=== PATIENT | female | born 1990 ===

== ENCOUNTER 2021-09-21 20:16 | Observation (INO) ==
[2021-09-21] MEDS ORDERED: Boostrix 0.5 ML (Tdap) VIAL ONE (20:37)
[2021-09-21] MEDS ORDERED: Lidocaine 1% (PF) 30 ML VIAL ONE (20:37)
[2021-09-21] MEDS ORDERED: Fentanyl 100 MCG/2 ML VIAL ONE ×3 (20:54→23:30)
[2021-09-21] MEDS ORDERED: Bacitracin Zinc Ointment 30 gm TUBE ONE (21:07)
[2021-09-21] MEDS ORDERED: Neomycin-Polymyxin 1 ML AMP ONE (21:07)
[2021-09-21] MEDS ORDERED: Bupivacaine PF 0.5% 30 ML VIAL ONE (21:07)
[2021-09-21] MEDS ORDERED: Acetaminophen 325 MG TAB PO PRN (21:14)
[2021-09-21] MEDS ORDERED: Fentanyl 100 MCG/2 ML VIAL SLOW IVP PRN (21:14)
[2021-09-21] MEDS ORDERED: Communication Order-Pharmacy FS SCH (21:15)
[2021-09-21] MEDS ORDERED: TETANUS AND DIPHTHERIA TOX/PF 0.5 ML DISP.SYRIN IM SCH (21:15)
[2021-09-21] MEDS ORDERED: Ketorolac Tromethamine 30 MG/ML VIAL IVP PRN (21:21)
[2021-09-21] MEDS ORDERED: Meperidine HCl/PF 25 MG/ML VIAL IM PRN (21:21)
[2021-09-21] MEDS ORDERED: Lidocaine 1% PF 5 ML VIAL ONE (21:41)
[2021-09-21] MEDS ORDERED: Succinylcholine 200 MG/10 ml SYRINGE FS ONE (21:41)
[2021-09-21] MEDS ORDERED: Rocuronium Bromide 10 MG/ML (10ML VIAL) ONE (21:41)
[2021-09-21] MEDS ORDERED: Ketorolac Tromethamine 30 MG/ML VIAL ONE (21:41)
[2021-09-21] MEDS ORDERED: PROPOFOL 200 MG/20 ML VIAL ONE (21:41)
[2021-09-21] MEDS ORDERED: Dexamethasone 20 MG/5 ML VIAL ONE (21:41)
[2021-09-21] MEDS ORDERED: Ondansetron PF 4 MG/2 ML Vial ONE (21:41)
[2021-09-21] MEDS ORDERED: Glycopyrrolate 0.2 MG/ML 5 ML SYRINGE ONE (21:41)
[2021-09-21] MEDS ORDERED: HYDROmorphone 2 MG/ML VIAL ONE (23:06)
[2021-09-21] MEDS ORDERED: Ondansetron HCl/PF 4 MG/2 ML Vial IVP PRN (23:27)
[2021-09-21] MEDS ORDERED: HYDROmorphone 2 MG/ML VIAL SLOW IVP PRN (23:27)
[2021-09-21] MEDS ORDERED: Promethazine HCl 25 MG/ML VIAL IVPB PRN (23:27)
[2021-09-21] MEDS ORDERED: Meperidine HCl/PF 25 MG/ML VIAL SLOW IVP PRN (23:27)
[2021-09-21] MEDS ORDERED: Promethazine HCl 25 MG/ML VIAL IM PRN (23:27)
[2021-09-21] MEDS ORDERED: Meperidine HCl/PF 25 MG/ML VIAL ONE (23:29)
[2021-09-22] MEDS: Sodium Chloride 0.9% 1,000 ML IV SCH ×3 (00:30→16:43)
[2021-09-22 01:21] VITALS: BMI 35.4
[2021-09-22] MEDS: Morphine 4 MG/ML VIAL SLOW IVP PRN ×3 (03:34→11:06)
[2021-09-22] MEDS: HYDROcodone/Acetaminophen 5/325 mg Tablet PO PRN ×2 (07:58→16:36)
[2021-09-22] MEDS ORDERED: FLU VACC QS2021-22(6MOS UP)/PF 60 MCG/0.5 ML SYRINGE IM ONE (09:00)
[2021-09-22] MEDS ORDERED: Vancomycin 1 GM in Premix Bag 1 BAG IVPB SCH (09:00)
[2021-09-22] MEDS ORDERED: Aspirin 81 mg Enteric Coated Tablet PO SCH (09:00)
[2021-09-22] MEDS ORDERED: Vancomycin HCl 1.25 GM in Sodium Chloride 0.9% 250 ML 250 ML IVPB SCH (10:00)
[2021-09-22] MEDS: traMADol HCl 50 MG TAB PO PRN ×2 (14:34→19:51)
[2021-09-22 18:24] VITALS: BP 114/76; TEMP 98
== END 2021-09-22 20:01 | disposition home or self-care (01) ==
LOC: ERS 20:16 → SDC/OP 21:09 → SURG B 21:14
PROVIDERS: ADMIT Orthopaedic Surgery Hand Surgery; ATTEND Orthopaedic Surgery Hand Surgery
PROC: 0PSR04Z Reposition Right Thumb Phalanx with Internal Fixation Device, Open Approach (ICD-10-PCS; principal; 2021-09-22)
PROC: 0HQQXZZ Repair Finger Nail, External Approach (ICD-10-PCS; 2021-09-22)
DX: S62.521B Displaced fracture of distal phalanx of right thumb, initial encounter for open fracture (principal); W31.9XXA Contact with unspecified machinery, initial encounter
CPT/HCPCS: 76000; 90471; 90715; 96374; 96375; 96376; 99284; C1713; G0378; G0390; J1100; J1170; J1885; J2001; J2175; J2270; J2405; J2704; J3010; J3370; J7050; S0020